=== PATIENT | male | born 1960 | race African-American/Black ===

== ENCOUNTER 2017-08-13 12:24 | Emergency (ER) | payer BC ==
[2017-08-13] MEDS: IBUPROFEN 600 MG TABLET. PO ×2 (14:09)
[2017-08-13] MEDS: SMZ/TMP 800/160MG TABLET. PO ×2 (14:09)
== END 2017-08-13 14:33 | disposition home or self-care (01) ==
LOC: ER 12:24
DX: L02.31 Cutaneous abscess of buttock (principal); F17.210 Nicotine dependence, cigarettes, uncomplicated
CPT/HCPCS: 99283